=== PATIENT | female | born 1990 | race African-American/Black ===

== ENCOUNTER 2018-05-13 11:01 | Emergency (ER) | payer OTHER ==
[2018-05-13 11:11] VITALS: BP 140/89; PULSE 90; TEMP 98.5; BMI 25.8
--- NOTE | 2018-05-13 11:34 | PDOC ---
History of Present Illness - General Chief Complaint: Headache Stated Complaint: HEADACHE Time Seen by Provider: 05/13/18 11:28 Past History - Past Medical History Allergies/Adverse Reactions: Allergies Allergy/AdvReac Type Severity Reaction Status Date / Time No Known Allergies Allergy Verified 05/19/16 00:00 Asthma: No Cancer: No Cardiac Disorders: No COPD: No Diabetes: No HTN: No Seizures: No Thyroid Disease: No - Immunization History Immunization Up to Date: Yes - Suicide/Smoking/Psychosocial Hx Smoking History: Never smoked Have you smoked in the past 12 months: No Hx Alcohol Use: No Drug/Substance Use Hx: No Hx Substance Use Treatment: No *Physical Exam - Vital Signs Last Vital Signs Temp Pulse Resp BP Pulse Ox 98.5 F 90 16 140/89 100 05/13/18 11:07 05/13/18 11:07 05/13/18 11:07 05/13/18 11:07 05/13/18 11:07 Moderate Sedation - Procedure Monitoring Vital Signs: Procedure Monitoring Vital Signs Temperature 98.5 F 05/13/18 11:07 Pulse Rate 90 05/13/18 11:07 Respiratory Rate 16 05/13/18 11:07 Blood Pressure 140/89 05/13/18 11:07 O2 Sat by Pulse Oximetry (%) 100 05/13/18 11:07 Medical Decision Making - Medical Decision Making 05/13/18 11:29 27 yo F, on paraguard 10 yr, h/o chroninc headache, occipital, peyes, relievd w. exedrimn,. w/ nauseasos mom migrainewoke up w/ CHILDRESS, heart beating fast, near syncope, mouth and nausous , decied to come in today for unclear reasosn. no med eval prior to today. See exam Chronicn HAs Since relievd w/ *DC/Admit/Observation/Transfer Diagnosis at time of Disposition: Chronic headache Qualifiers: Headache type: unspecified Intractability: not intractable Qualified Code(s): R51 - Headache - Discharge Dispostion Disposition: HOME Condition at time of disposition: Improved - Referrals Referrals: Seth Hogan MD [Staff Physician] - - Patient Instructions Printed Discharge Instructions: DI for Headache Additional Instructions: The cause of your headache is unclear at this time you will need further evaluation by a neurologist Continue taking exedrine for pain as needed - Post Discharge Activity
--- NOTE | 2018-05-13 11:40 | PDOC ---
*Physical Exam - Vital Signs Last Vital Signs Temp Pulse Resp BP Pulse Ox 98.5 F 90 16 140/89 100 05/13/18 11:07 05/13/18 11:07 05/13/18 11:07 05/13/18 11:07 05/13/18 11:07 - Physical Exam Comments: 05/13/18 11:39 The patient was examined by [MARY Brown] under my direct supervision. I personally evaluated the patient. I concur with the above findings and the plan of care. 05/13/18 11:49 27-year-old female with family history of migraines, presents with recurrent typical migraine with nausea and dizziness. Patient endorses that her symptoms are similar and character to previous episodes and have now completely resolved after administration of Excedrin. Patient nonfocal neurologically in the ER with normal vital signs. No indication for imaging of the brain is present at this time. Will discharge with outpatient neurology follow-up. *DC/Admit/Observation/Transfer Diagnosis at time of Disposition: Chronic headache - Discharge Dispostion Disposition: HOME Condition at time of disposition: Improved - Referrals Referrals: Seth Hogan MD [Staff Physician] - - Patient Instructions Printed Discharge Instructions: DI for Headache Additional Instructions: The cause of your headache is unclear at this time you will need further evaluation by a neurologist Continue taking exedrine for pain as needed - Post Discharge Activity
--- NOTE | 2018-05-13 12:07 | PDOC ---
History of Present Illness - General Chief Complaint: Headache Stated Complaint: HEADACHE Time Seen by Provider: 05/13/18 11:28 History Source: Patient - History of Present Illness Timing/Duration: reports: other Past History - Past Medical History Allergies/Adverse Reactions: Allergies Allergy/AdvReac Type Severity Reaction Status Date / Time No Known Allergies Allergy Verified 05/19/16 00:00 Asthma: No Cancer: No Cardiac Disorders: No COPD: No Diabetes: No HTN: No Seizures: No Thyroid Disease: No - Immunization History Immunization Up to Date: Yes - Suicide/Smoking/Psychosocial Hx Smoking History: Never smoked Have you smoked in the past 12 months: No Hx Alcohol Use: No Drug/Substance Use Hx: No Hx Substance Use Treatment: No Review of Systems - Review of Systems Constitutional: No: Fever, Unintentional Wgt. Loss HEENTM: No: Blurred Vision Neurological: Yes: Headache. No: Numbness, Tingling, Weakness, Dizziness *Physical Exam - Vital Signs Last Vital Signs Temp Pulse Resp BP Pulse Ox 98.5 F 90 16 140/89 100 05/13/18 11:07 05/13/18 11:07 05/13/18 11:07 05/13/18 11:07 05/13/18 11:07 - Physical Exam General Appearance: Yes: Appropriately Dressed. No: Apparent Distress HEENT: positive: Normal Voice Neck: positive: Supple Respiratory/Chest: negative: Respiratory Distress Neurologic: positive: health communications specialist II-XII NML intact, Fully Oriented, Alert, Normal Mood/ Affect, Motor Strength 5/5 Moderate Sedation - Procedure Monitoring Vital Signs: Procedure Monitoring Vital Signs Temperature 98.5 F 05/13/18 11:07 Pulse Rate 90 05/13/18 11:07 Respiratory Rate 16 05/13/18 11:07 Blood Pressure 140/89 05/13/18 11:07 O2 Sat by Pulse Oximetry (%) 100 05/13/18 11:07 Medical Decision Making - Medical Decision Making 05/13/18 11:29 27 yo F, s/p IUD, endorses chronic headaches, here w/ usual CHILDRESS this am, since resolved w/ exedrine. Pt states she has had headaches "all my life", usually located to occiput but sometime radiates to b/l orbital areas, unable to describe, 10/10 and a/w dizziness and nausea. States CHILDRESS reoccurred this am w/ usual dizziness and nausea. No syncope, blurry vision or vomiting. Has since taken exedrine with relief of her symptoms. States that she has never seeked medical evaluation before today. Now comes in because HAs have worsened over past several months per pt. Pt denies chronic fatigue and palpations as documented at triage see exam Chronic CHILDRESS Possibly migrainous (mother w/ hx) Since resolved w/ exedrine Stable and non-focal Given chronicity, normal neuro exam and relief w/ exedrine, no indication for CT at this time -dc w/ neuro f/u for further evaluation 05/13/18 12:49 *DC/Admit/Observation/Transfer Diagnosis at time of Disposition: Chronic headache Qualifiers: Headache type: unspecified Intractability: not intractable Qualified Code(s): R51 - Headache - Discharge Dispostion Disposition: HOME Condition at time of disposition: Improved - Referrals Referrals: Seth Hogan MD [Staff Physician] - - Patient Instructions Printed Discharge Instructions: DI for Headache Additional Instructions: The cause of your headache is unclear at this time you will need further evaluation by a neurologist Continue taking exedrine for pain as needed - Post Discharge Activity
--- NOTE | 2018-05-17 17:03 | EKG ---
Test Reason : Blood Pressure : / mmHG Vent. Rate : 074 BPM Atrial Rate : 074 BPM P-R Int : 144 ms QRS Dur : 072 ms QT Int : 376 ms P-R-T Axes : 046 -10 029 degrees QTc Int : 417 ms NORMAL SINUS RHYTHM NORMAL ECG NO PREVIOUS ECGS AVAILABLE Confirmed by MD LISA, JERRY ([id number]) on 05/17/2018 5:03:31 PM Referred By: Confirmed By:JERRY GONZALEZ MD
== END 2018-05-13 11:45 | disposition home or self-care (01) ==
LOC: JER 11:01
DX: R51 Headache (principal); G89.29 Other chronic pain
CPT/HCPCS: 93005; 93010; 99281-25